=== PATIENT | male | born 1980 | race Caucasian/White ===

== ENCOUNTER 2018-03-06 16:05 | Emergency (ER) | payer OTHER ==
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
--- NOTE | 2018-03-06 16:48 | CPEKG ---
Test Reason : OPEN Blood Pressure : / mmHG Vent. Rate : 070 BPM Atrial Rate : 069 BPM P-R Int : 146 ms QRS Dur : 086 ms QT Int : 377 ms P-R-T Axes : 058 232 057 degrees QTc Int : 407 ms Sinus rhythm Markedly posterior QRS axis Consider right ventricular hypertrophy Confirmed by Mega Stiles ([id number]) on 03/06/2018 4:48:40 PM Referred By: Confirmed By:Mega Stiles
[2018-03-06] MEDS ORDERED: KETOROLAC 15 MG/1 ML SDV IVP ONE (17:23)
[2018-03-06] MEDS ORDERED: KETOROLAC 15 MG/1 ML SDV ONE (17:23)
[2018-03-06 18:35] VITALS: BP 128/83
== END 2018-03-06 18:34 | disposition home or self-care (01) ==
DX: S16.1XXA Strain of muscle, fascia and tendon at neck level, initial encounter (principal); V49.49XA Driver injured in collision with other motor vehicles in traffic accident, initial encounter; Y92.410 Unspecified street and highway as the place of occurrence of the external cause; Y99.0 Civilian activity done for income or pay; E03.9 Hypothyroidism, unspecified; F17.200 Nicotine dependence, unspecified, uncomplicated
CPT/HCPCS: 96374; J1885